=== PATIENT | female | born 1990 | race Caucasian/White ===

== ENCOUNTER → 2016-11-06 | Day surgery (SDC) | payer BC ==
[~2016-11-06] MED LIST: DILAUDID PO; MULTI VITAMIN1 EACH PO; NO MEDICATIONS; NORCO 10/3251 TAB PO; VIBRAMYCIN100 M1 PO; VITAMIN C500 M1 PO
--- NOTE | ~2016-11-06 | OR ---
Unit #: [id number] #: [id number] Patient: NOMI KOVACS [id number] [facility]. [address] [place], [place] [address] [id number] O MR#: [id number] NAME: NOMI KOVACS ROOM: Date of Procedure: 11/06/2016 Admission Date: 11/06/2016 Surgeon: Arias Jimenez Jr., M.D. : 1990 Attending Physician: Arias Jimenez Jr., M.D. OPERATIVE REPORT INDICATIONS FOR PROCEDURE The patient is a 26-year-old white female, who previously underwent bilateral axillary skin and subcutaneous resections for chronic hidradenitis. 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 She is brought in this time for this procedure. She has had antibiotics in the past that have not worked and the wound itself was actually increased in size to the point where it is 1 x 3 cm with granulation at the base. 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 ANESTHESIA General with LMA and 0.5% Marcaine with epinephrine. PROCEDURE PERFORMED Excision of chronic granulation tissue and chronic infected tissue of the left axilla along with the sinus. DESCRIPTION OF PROCEDURE The patient was positioned in supine position. After being anesthetized, she was prepped and draped in routine fashion for excision of the sinus tract in the left axilla. An elliptical incision was made around the sinus tract and it was obvious once the skin was incised, there was tunneling of the wound up superiorly at least 4 to 5 inches. There was a gooey type of granulation at the base with very poor healing properties. The skin and gooey portion of the wound was then completely excised with a #10 blade scalpel with sharp excisional debridement being performed down to the fascia. After all the chronic infected appearing tissue was removed, hemostasis achieved with Bovie cautery. The wound was irrigated and the deeper tissue approximated with interrupted 3-0 and 2-0 Vicryl sutures. Skin edges approximated with interrupted 2-0 nylon mattress stitches as well as stainless-steel skin clips and skin stapling device. Sterile dressings were applied along with compression and ointment. Estimated blood loss less than 100 mL. The patient received less than 2000 mL crystalloid solution during the procedure. Sponges and Unit #: [id number] #: [id number] Patient: NOMI KOVACS instruments counts were correct x3. No drains used. No complications. The patient was taken to the recovery room with stable vital signs in satisfactory condition. Dictated by... Arias Jimenez Jr., M.D. JMB/juan manuel TD: 11/07/2016 02:44 JOB #: [id number] OPERATIVE REPORT Page 1 of 1 X Arias Jimenez MD X PROCEDURE OPERATIVE NOTE
== END | disposition home or self-care (01) ==
LOC: CSUR 09:30
DX: T81.89XA Other complications of procedures, not elsewhere classified, initial encounter (principal); L98.499 Non-pressure chronic ulcer of skin of other sites with unspecified severity; L72.0 Epidermal cyst; L90.5 Scar conditions and fibrosis of skin; Z88.1 Allergy status to other antibiotic agents; Z88.2 Allergy status to sulfonamides; Z88.8 Allergy status to other drugs, medicaments and biological substances; Z98.890 Other specified postprocedural states
CPT/HCPCS: 84703; 88304; J2250; J2405; J2550; J3010